=== PATIENT | female | born 1955 | race Caucasian/White ===

== ENCOUNTER → 2016-11-22 | Outpatient (CLI) | payer BC ==
[~2016-11-22] MED LIST: ISOVUE-370 76% 100ML VIAL (Q9967) As Ordered ONE
--- NOTE | 2016-11-22 15:57 | REP ---
CT CHEST WITH CONTRAST: 11/22/2016. Comparison: Chest x-ray 07/15/2016, 08/11/2014. Clinical history: Recent chest x-ray with question nodular mass right lung base. Technique: Bolus of 75 ml of Isovue 370, scanning through the chest with coronal and sagittal reconstructions. MIP thick slab reformats and lung window settings are reviewed. The lung cruz are well inflated. Epicardial fat pads are prominent on both sides of the heart, right more so than left. Adjacent to the mediastinal pleura of the medial segment of the right middle lobe, there is curvilinear atelectatic change, chronic. This is likely compressive atelectasis due to the epicardial fat pad. The left epicardial fat pad does not have adjacent atelectasis, but may be a small scar inferior lingular segment left upper lobe at the anterior left lung base. There is no effusion, pleural thickening, pleural based plaque or calcification. No parenchymal mass. No pulmonary nodule. No acute infiltrate with air bronchograms. Heart is not enlarged. Left atrium is borderline. There is no pericardial thickening or effusion. There is a small hiatal hernia. The aorta has atherosclerotic calcification without aneurysm or dissection. No pathologic mediastinal or hilar adenopathy. Upper abdomen shows some presumed fatty infiltration of liver and spleen without a mass. Spleen is not enlarged. No adrenal or pancreatic abnormality. The visualized portions of the poles of kidneys intact. The bony thorax shows vertebral bodies, posterior elements, sternum, manubrium, clavicles and shoulders grossly intact. Impression: 1. Epicardial fat pads on both sides of the heart with some curvilinear chronic atelectatic or fibrotic changes along the mediastinal pleura of the medial segment right middle lobe. This may give a pseudomass appearance but there is no lung mass, pericardial thickening or effusion. 2. Epicardial fat pad on the left and the borderline heart size with left atrial enlargement. Trace small hiatal hernia. 3. The lungs are well inflated and clear. No acute finding. Signed by Darwin Coyle MD 11/23/2016 03:04 P
== END ==
LOC: M RAD 13:55
PROVIDERS: ATTEND Family Medicine
DX: R91.8 Other nonspecific abnormal finding of lung field (principal)
CPT/HCPCS: 71260; Q9967

== ENCOUNTER → 2017-09-05 | Outpatient (REF) | payer BC | LOC: M LAB REF 13:46 | DX: J11.1 Influenza due to unidentified influenza virus with other respiratory manifestations (principal) | CPT/HCPCS: 87633 ==

== ENCOUNTER → 2019-08-08 | Outpatient (CLI) | payer BC ==
[2019-08-08 12:59] LABS: HEMATOCRIT 42.6 % (36.0-47.0); HEMOGLOBIN 13.8 g/dl (12.0-15.5); MEAN CORPUSCULAR HEMOGLOBIN 30.1 pg (27.0-33.0); MEAN CORPUSCULAR HGB CONC 32.4 g/dl (32.0-36.5); MEAN CORPUSCULAR VOLUME 92.8 fl (80.0-96.0); PLATELET COUNT, AUTOMATED 251 10^3/uL (150-450); RED BLOOD COUNT 4.59 10^6/uL (4.00-5.40)
[2019-08-08 13:21] LABS: HEMOGLOBIN A1c 6.2 %
[2019-08-08 13:27] LABS: ALBUMIN 3.6 GM/DL (3.2-5.2); ALT/SGPT 34 U/L (12-78); BILIRUBIN,TOTAL 0.3 MG/DL (0.2-1.0); BLOOD UREA NITROGEN 14 MG/DL (7-18); CALCIUM LEVEL 8.8 MG/DL (8.8-10.2); CARBON DIOXIDE LEVEL 26 MEQ/L (21-32); CHLORIDE LEVEL 108 MEQ/L (98-107); CHOLESTEROL LEVEL 325 MG/DL (<200); CHOLESTEROL RISK RATIO 7.926 (<5); CREATININE FOR GFR 0.84 MG/DL (0.55-1.30); GLOMERULAR FILTRATION RATE > 60.0 (>45); GLUCOSE, FASTING 88 MG/DL (70-100); HDL CHOLESTEROL 41 MG/DL (>40); LDL CHOLESTEROL 233 MG/DL (<100); NON-HDL-C 284 MG/DL; POTASSIUM SERUM 4.4 MEQ/L (3.5-5.1); SODIUM LEVEL 142 MEQ/L (136-145); TOTAL PROTEIN 6.7 GM/DL (6.4-8.2); TRIGLYCERIDES LEVEL 254 MG/DL (<150)
[2019-08-08 13:28] LABS: TOTAL 25(OH) VITAMIN D 39.7 NG/ML (30.0-100.0)
== END ==
LOC: M WUC 09:07
PROVIDERS: ATTEND Family Medicine
DX: I10 Essential (primary) hypertension (principal); R53.83 Other fatigue

== ENCOUNTER 2020-07-13 15:04 | Emergency (ER) | payer OTHER, SELFPAY ==
[~2020-07-13] VITALS: Ht 160 cm; Wt 70.9 kg
[2020-07-13] MEDS ORDERED: oxyCODONE 5MG TAB PO PRN (15:15)
[2020-07-13] MEDS ORDERED: fentaNYL 100 MCG/2 ML INJECTION (J3010) IV PRN (15:15)
[2020-07-13] MEDS ORDERED: ONDANSETRON 4MG/2ML VIAL IV PRN (15:15)
[2020-07-13] MEDS ORDERED: LR 1,000 ML IV SCH (15:15)
[2020-07-13] MEDS ORDERED: HYDROMORPHONE HCL 0.5 MG/ 0.5 ML SYRINGE (J1170 PER 1) IV PRN (15:15)
[2020-07-13] MEDS ORDERED: ZOLP10TA2 PO (15:16)
[2020-07-13] MEDS ORDERED: CYCL-707 PO (15:16)
[2020-07-13] MEDS ORDERED: ATEN25TA PO (15:16)
[2020-07-13] MEDS ORDERED: ESTR10TA VG (15:16)
[2020-07-13 15:56] LABS: BASO % 0.3 % (0.0-1.0); EOS # 0.1 10^3/uL (0.0-0.5); EOS % 1.3 % (0.0-3.0); HEMATOCRIT 43.7 % (36.0-47.0); HEMOGLOBIN 14.7 g/dl (12.0-15.5); LYMPH # 2.2 10^3/uL (1.5-5.0); MEAN CORPUSCULAR HEMOGLOBIN 30.8 pg (27.0-33.0); MEAN CORPUSCULAR HGB CONC 33.6 g/dl (32.0-36.5); MEAN CORPUSCULAR VOLUME 91.6 fl (80.0-96.0); MONO # 0.4 10^3/uL (0.0-0.8); MONO % 6.2 % (0.0-5.0); NEUTROPHILS # 4.1 10^3/uL (1.5-8.5); NEUTROPHILS % 59.8 % (36.0-66.0); PLATELET COUNT, AUTOMATED 246 10^3/uL (150-450); RED BLOOD COUNT 4.77 10^6/uL (4.00-5.40); WHITE BLOOD COUNT 6.8 10^3/uL (4.0-10.0)
[2020-07-13 15:57] LABS: APPEARANCE, URINE CLEAR (CLEAR); BACTERIA, URINE AUTO NEGATIVE (NEGATIVE); BILIRUBIN, URINE AUTO NEGATIVE (NEGATIVE); BLOOD, URINE BLOOD NEGATIVE (NEGATIVE); COLOR, URINE STRAW (YELLOW); GLUCOSE, URINE (UA) AUTO NEGATIVE (NEGATIVE); KETONE, URINE AUTO NEGATIVE (NEGATIVE); LEUKOCYTE ESTERASE, URINE AUTO NEGATIVE (NEGATIVE); NITRITE, URINE AUTO NEGATIVE (NEGATIVE); PROTEIN, URINE AUTO NEGATIVE (NEGATIVE); RBC, URINE AUTO 0 /HPF (0-3); SPECIFIC GRAVITY URINE AUTO 1.005 (1.002-1.035); SQUAMOUS EPITHELIAL CELL UR AU 0 /HPF (0-6); UROBILINOGEN, URINE AUTO 0.2 mg/dL (0.0-2.0); WBC, URINE AUTO 0 /HPF (0-3)
--- NOTE | 2020-07-13 16:01 | REP ---
INDICATION: hypertension. COMPARISON: July 15, 2016. May 18, 2020 prior chest x-ray is also reviewed. TECHNIQUE: Sitting AP portable radiograph. Single-view. FINDINGS: Monitoring electrodes are seen. The lungs are well inflated and clear. The pleural angles are sharp. Heart size is normal. The thoracic aorta is slightly tortuous. Pulmonary vasculature is not increased. IMPRESSION: No active cardiopulmonary disease. <Electronically signed by Richard Oscar > 07/13/20 [id number]
[2020-07-13] MEDS ORDERED: CALC600C3 PO (16:10)
[2020-07-13] MEDS ORDERED: SERT-141 PO (16:10)
[2020-07-13] MEDS ORDERED: XANA0.5T PO (16:10)
[2020-07-13] MEDS ORDERED: OMEP40CA97 PO (16:10)
[2020-07-13] MEDS ORDERED: VITALIQ27 MC (16:10)
--- NOTE | 2020-07-13 16:16 | REP ---
INDICATION: hypertensive/headache. COMPARISON: None. TECHNIQUE: Helical scanning is acquired. 5 mm axial images were reformatted. Coronal MPR images were generated. FINDINGS: Bone window settings demonstrate an intact bony calvarium. There is no evidence of skull fracture or incidental bony calvarial lesion. The visualized paranasal sinuses appear clear. No intraorbital abnormality is seen. On soft tissue window setting images; the lateral, third, and fourth ventricles are normal in size and position. Sheets-white differentiation pattern is normal above and below the tentorium. There are is no evidence of intracranial hemorrhage. No mass, edema, infarction, or midline shift is seen. No extra-axial fluid collection is appreciated. There is mild vascular calcification in the distal internal carotid arteries bilaterally. Mild generalized volume loss is visible on soft tissue window settings. IMPRESSION: Mild generalized volume loss and vascular calcification. No acute intracranial abnormality.. <Electronically signed by Richard Oscar > 07/13/20 [id number]
[2020-07-13 16:38] LABS: ALBUMIN 4.1 GM/DL (3.2-5.2); ALT/SGPT 50 U/L (12-78); BILIRUBIN,DIRECT < 0.1 MG/DL (0.0-0.2); BILIRUBIN,TOTAL 0.4 MG/DL (0.2-1.0); BLOOD UREA NITROGEN 11 MG/DL (7-18); CALCIUM LEVEL 9.2 MG/DL (8.8-10.2); CARBON DIOXIDE LEVEL 28 MEQ/L (21-32); CHLORIDE LEVEL 106 MEQ/L (98-107); CK-MB VALUE MASS 1.5 NG/ML (<3.6); CPK CREATINE PHOSPHOKINASE 138 U/L (26-192); CREATININE FOR GFR 0.78 MG/DL (0.55-1.30); GLOMERULAR FILTRATION RATE > 60.0 (>45); GLUCOSE, FASTING 85 MG/DL (70-100); MB/CK RELATIVE INDEX 1.09 (< OR =4); POTASSIUM SERUM 4.4 MEQ/L (3.5-5.1); SODIUM LEVEL 137 MEQ/L (136-145); TOTAL PROTEIN 8.2 GM/DL (6.4-8.2); TROPONIN I < 0.02 NG/ML (< 0.10)
[2020-07-13] MEDS: LABETALOL 100MG/20ML VIAL IV PRN ×2 (16:43→17:25)
--- NOTE | 2020-07-13 17:12 | ECGEPIP ---
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
[2020-07-13] MEDS ORDERED: KETOROLAC 30 MG/ML 1ML VIAL IV ONE (17:30)
[2020-07-13] MEDS ORDERED: METOCLOPRAMIDE INJ 10MG/2ML VIAL (J2765 PER 1) IV ONE (17:30)
[2020-07-13] MEDS ORDERED: diphenhydrAMINE 50MG/ML VIAL (J1200) IV ONE (17:30)
[2020-07-13] MEDS ORDERED: ACETAMINOPHEN 500 MG TAB PO ONE (17:30)
[2020-07-13] MEDS ORDERED: FUROSEMIDE 40MG/4ML VIAL (J1940) IV ONE (18:30)
[2020-07-13] MEDS ORDERED: CARVedilol 12.5 MG TAB PO ONE (18:30)
[2020-07-13] MEDS ORDERED: lisinopriL 10 MG TAB PO ONE (18:30)
[2020-07-13 18:43] VITALS: BP 243/112
[2020-07-13 18:55] LABS: AMPHETAMINES LEVEL URINE NEGATIVE (NEGATIVE); BARBITURATES URINE POSITIVE (NEGATIVE); BENZODIAZEPINES URINE NEGATIVE (NEGATIVE); CANNABINOIDS URINE NEGATIVE (NEGATIVE); COCAINE METABOLITE URINE NEGATIVE (NEGATIVE); METHADONE URINE NEGATIVE (NEGATIVE); OPIATES URINE NEGATIVE (NEGATIVE); PHENCYCLIDINE URINE NEGATIVE (NEGATIVE)
[2020-07-13 20:00] VITALS: BP 141/87
[2020-07-13] MEDS ORDERED: CHLO125TA PO (20:02)
[2020-07-13] MEDS ORDERED: LISI10TA4 PO (20:02)
[2020-07-13] MEDS ORDERED: CORE12.5 PO (20:02)
== END 2020-07-13 20:15 | disposition home or self-care (01) ==
LOC: M ED 15:04
DX: I10 Essential (primary) hypertension (principal); F41.9 Anxiety disorder, unspecified; Z88.6 Allergy status to analgesic agent; Z88.4 Allergy status to anesthetic agent; Z79.899 Other long term (current) drug therapy
CPT/HCPCS: 36415; 70450; 71045; 80053; 80307; 81001; 82248; 82550; 82553; 85025; 93005; 96374; 96375; 99284; J1200; J1885; J1940; J2765

== ENCOUNTER 2020-07-23 17:09 | Emergency (ER) | payer OTHER ==
[~2020-07-23] VITALS: Ht 160 cm; Wt 69.4 kg
[~2020-07-23 17:09] MED LIST changes: +ATEN25TA PO; +CALC600C3 PO; +CHLO125TA PO; +CORE12.5 PO; +CYCL-707 PO; +ESTR10TA VG; -ISOVUE-370 76% 100ML VIAL (Q9967) As Ordered ONE; +LISI10TA4 PO; +OMEP40CA97 PO; +SERT-141 PO; +VITALIQ27 MC; +XANA0.5T PO; +ZOLP10TA2 PO
[2020-07-23] MEDS ORDERED: CVS5000S2 PO (17:18)
[2020-07-23] MEDS ORDERED: KETOROLAC 30 MG/ML 1ML VIAL IV ONE (18:00)
[2020-07-23 18:11] LABS: BASO % 0.3 % (0.0-1.0); EOS # 0.1 10^3/uL (0.0-0.5); EOS % 1.6 % (0.0-3.0); HEMATOCRIT 44.7 % (36.0-47.0); HEMOGLOBIN 14.6 g/dl (12.0-15.5); LYMPH # 2.2 10^3/uL (1.5-5.0); LYMPH % 35.5 % (24.0-44.0); MEAN CORPUSCULAR HEMOGLOBIN 29.6 pg (27.0-33.0); MEAN CORPUSCULAR HGB CONC 32.7 g/dl (32.0-36.5); MEAN CORPUSCULAR VOLUME 90.7 fl (80.0-96.0); MONO # 0.4 10^3/uL (0.0-0.8); NEUTROPHILS # 3.5 10^3/uL (1.5-8.5); NEUTROPHILS % 56.3 % (36.0-66.0); PLATELET COUNT, AUTOMATED 291 10^3/uL (150-450); RED BLOOD COUNT 4.93 10^6/uL (4.00-5.40); WHITE BLOOD COUNT 6.2 10^3/uL (4.0-10.0)
[2020-07-23 18:34] LABS: ALBUMIN 4.4 GM/DL (3.2-5.2); ALT/SGPT 46 U/L (12-78); BILIRUBIN,DIRECT < 0.1 MG/DL (0.0-0.2); BILIRUBIN,TOTAL 0.2 MG/DL (0.2-1.0); BLOOD UREA NITROGEN 15 MG/DL (7-18); CARBON DIOXIDE LEVEL 26 MEQ/L (21-32); CHLORIDE LEVEL 106 MEQ/L (98-107); CREATININE FOR GFR 0.78 MG/DL (0.55-1.30); GLOMERULAR FILTRATION RATE > 60.0 (>45); GLUCOSE, FASTING 128 MG/DL (70-100); LIPASE 206 U/L (73-393); POTASSIUM SERUM 3.8 MEQ/L (3.5-5.1); SODIUM LEVEL 137 MEQ/L (136-145)
--- NOTE | 2020-07-23 18:35 | REP ---
INDICATION: hit doorknob/ l flank pain. COMPARISON: Chest 07/13/2020. TECHNIQUE: Four views of left ribs are performed. A PA view of the chest is performed. FINDINGS: There is no evidence of left rib fracture or bone lesion. Lungs show no infiltrate. No pneumothorax is seen. There is no pleural effusion. Heart is normal in size and the mediastinal silhouette is unremarkable. IMPRESSION: Negative left rib series, there is no radiographically visible left rib fracture. <Electronically signed by David Sheets > 07/23/20 [id number]
--- NOTE | 2020-07-23 19:39 | REPVR ---
PROCEDURE INFORMATION: Exam: CT Abdomen And Pelvis Without Contrast Exam date and time: 07/23/2020 6:40 PM Age: 64 years old Clinical indication: Abdominal pain; Flank; Left; Additional info: Left flank pain TECHNIQUE: Imaging protocol: Computed tomography of the abdomen and pelvis without contrast. Radiation optimization: All CT scans at this facility use at least one of these dose optimization techniques: automated exposure control; mA and/or kV adjustment per patient size (includes targeted exams where dose is matched to clinical indication); or iterative reconstruction. COMPARISON: No relevant prior studies available. FINDINGS: Lungs: No suspicious mass or airspace process in the visualized lung bases. Mediastinal space: Small hiatal hernia measuring 2.5 cm is present. Liver: Noncontrast liver shows no obvious lesion. Gallbladder and bile ducts: Gallbladder is present and shows no evidence of gallstone. Pancreas: Noncontrast pancreas shows no obvious mass or adjacent fluid. Spleen: Noncontrast spleen shows no obvious focal deformity. Adrenal glands: Adrenal glands are normal in appearance. Kidneys and ureters: Kidneys demonstrate no stone or obstruction. Stomach and bowel: No evidence of small bowel obstruction. No evidence of acute diverticulitis. Appendix: Normal caliber appendix is identified, with no adjacent inflammation. Intraperitoneal space: No pneumoperitoneum. Vasculature: Atherosclerotic change present in the aorta, without aneurysm. Lymph nodes: No enlarged lymph nodes. Urinary bladder: Urinary bladder appears normal. Reproductive: Uterus is surgically absent. Bones/joints: Bony structures are normal except for lumbar spine degenerative disc changes. Soft tissues: No concerning focal abnormality of the extra-abdominal and pelvic soft tissues. Other findings: Limited evaluation without enteric or IV contrast. IMPRESSION: 1. No evidence of renal stone or obstructing uropathy no explanation for acute left flank pain. 2. Hepatomegaly and hepatic steatosis Electronically signed by: Abisai Saravia On 07/23/2020 19:39:07 PM
[2020-07-23] MEDS ORDERED: CYCL5TAB PO (19:58)
[2020-07-23 20:19] VITALS: BP 168/96
--- NOTE | 2020-07-26 19:40 | ED PDOC ---
Post-Departure Follow-Up julio colin faxed formal report of ct abd/p for fu Batool Bravo MD Jul 26, 2020 19:40
== END 2020-07-23 20:28 | disposition home or self-care (01) ==
LOC: M ED 17:09
DX: R10.9 Unspecified abdominal pain (principal); I10 Essential (primary) hypertension; K21.9 Gastro-esophageal reflux disease without esophagitis; Z88.6 Allergy status to analgesic agent; Z88.8 Allergy status to other drugs, medicaments and biological substances
CPT/HCPCS: 71101; 74176; 80048; 80076; 81001; 83690; 85025; 87086; 96374; 99284; J1885

== ENCOUNTER → 2020-08-09 | Outpatient (CLI) | payer OTHER ==
[~2020-08-09] MED LIST changes: +CVS5000S2 PO; +CYCL5TAB PO
[2020-08-09 14:04] LABS: CALCIUM LEVEL 9.3 MG/DL (8.8-10.2); CREATININE FOR GFR 1.07 MG/DL (0.55-1.30); MAGNESIUM LEVEL 2.4 MG/DL (1.8-2.4); POTASSIUM SERUM 4.3 MEQ/L (3.5-5.1)
[2020-08-09 14:11] LABS: CREATININE, URINE 25.4 MG/DL; MALB URINE SIEMENS < 5.0 MG/L; MAU/CREAT RATIO 19.6 MCG/MG (0.0-30.0)
== END ==
LOC: M LAB 12:24
PROVIDERS: ATTEND Internal Medicine Cardiovascular Disease
DX: R23.2 Flushing (principal); I10 Essential (primary) hypertension

== ENCOUNTER → 2020-08-11 | Outpatient (REF) | payer OTHER | LOC: M LAB REF 10:21 | PROVIDERS: ATTEND Internal Medicine Cardiovascular Disease | DX: I10 Essential (primary) hypertension (principal); R23.2 Flushing ==

== ENCOUNTER → 2020-08-12 | Outpatient (REF) | payer OTHER ==
[2020-08-12 11:30] LABS: TOTAL VOLUME, URINE 2350 ML
[2020-08-12 11:49] LABS: SODIUM 24 HOUR URINE 101 MEQ/24HR (40-220); SODIUM, URINE 43 MEQ/L
== END ==
LOC: M LAB REF 10:17
PROVIDERS: ATTEND Internal Medicine Cardiovascular Disease
DX: I10 Essential (primary) hypertension (principal); R23.2 Flushing

== ENCOUNTER → 2020-08-30 | Outpatient (CLI) | payer OTHER ==
[~2020-08-30] MED LIST changes: +LISI10TA22 PO; -LISI10TA4 PO
--- NOTE | 2020-08-30 09:02 | REP ---
INDICATION: ESSENTIAL HYPERTENSION COMPARISON: None TECHNIQUE: Real time felix scale ultrasound examination using curved array transducer followed by color Doppler evaluation of the renal vasculature. FINDINGS: The bilateral kidneys demonstrate normal reniform shape without hydronephrosis. Right kidney measures 10.5 x 4.6 x 4.3. 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 Color Doppler evaluation of the renal vasculature is essentially normal.. Peak aortic velocity: 50.2 centimeters/second RIGHT KIDNEY Renal arterial velocity: 116.9 centimeters/second Renal-aortic ratio: 2.3 Intrarenal resistive indices: 0.54-0.57 Intrarenal acceleration times: 0.019-0.02 LEFT KIDNEY Renal arterial velocity: 133 centimeters/second Renal-aortic ratio: 2.7 Intrarenal resistive indices: 0.56-0.68 Intrarenal acceleration times: 0.017-0.039 IMPRESSION: 1. 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 No hydronephrosis.. 2. Doppler interrogation without sonographic evidence for renal arterial stenosis. <Electronically signed by Alden Ryan > 08/30/20 0813
== END ==
LOC: M RAD 07:50
PROVIDERS: ATTEND Internal Medicine Cardiovascular Disease
DX: I10 Essential (primary) hypertension (principal); N28.1 Cyst of kidney, acquired

== ENCOUNTER → 2020-08-31 | Outpatient (REF) | payer OTHER ==
[2020-08-31 19:13] LABS: HEMOGLOBIN A1c 6.2 %
== END ==
LOC: M SFHCADAM 14:17
PROVIDERS: ATTEND Physician Assistant Medical
DX: R73.03 Prediabetes (principal)

== ENCOUNTER → 2020-08-31 | Outpatient (CLI) | payer OTHER ==
--- NOTE | 2020-09-01 10:07 | REP ---
INDICATION: LOW BACK PAIN COMPARISON: None. TECHNIQUE: AP, lateral, and swimmers views. FINDINGS: Alignment and kyphosis is maintained. Vertebral bodies intact. No acute fracture / compression injury or subluxation. Generalized age-related changes include osteopenia and mild endplate sclerosis with minimal marginal spurring at multiple levels. IMPRESSION: Age-related osteopenia and very mild age-related changes. No acute fracture/compression injury or subluxation. <Electronically signed by Alden Ryan > 09/01/20 [id number]
== END ==
LOC: M ADAMS 14:20
PROVIDERS: ATTEND Physician Assistant Medical
DX: M54.5 Low back pain (principal)

== ENCOUNTER 2020-10-06 13:00 | Outpatient (RCR) | payer BC, MEDICARE | END 2020-10-10 | LOC: M PT 13:00 | PROVIDERS: ATTEND Physician Assistant Medical | DX: M54.6 Pain in thoracic spine (principal) ==

== ENCOUNTER 2020-11-05 21:35 | Emergency (ER) | payer MEDICARE ==
[~2020-11-05] VITALS: Ht 160 cm; Wt 65.5 kg
[2020-11-06 00:47] LABS: HEMOGLOBIN 11.3 g/dl (12.0-15.5); MEAN CORPUSCULAR HEMOGLOBIN 30.8 pg (27.0-33.0); MEAN CORPUSCULAR HGB CONC 33.2 g/dl (32.0-36.5); MEAN CORPUSCULAR VOLUME 92.6 fl (80.0-96.0); PLATELET COUNT, AUTOMATED 203 10^3/uL (150-450); RED BLOOD COUNT 3.67 10^6/uL (4.00-5.40); WHITE BLOOD COUNT 6.2 10^3/uL (4.0-10.0)
[2020-11-06] MEDS ORDERED: KETOROLAC 30 MG/ML 1ML VIAL IV ONE (01:00)
[2020-11-06 01:16] LABS: ALT/SGPT 26 U/L (12-78); BILIRUBIN,DIRECT < 0.1 MG/DL (0.0-0.2); BILIRUBIN,TOTAL 0.3 MG/DL (0.2-1.0); BLOOD UREA NITROGEN 16 MG/DL (7-18); CARBON DIOXIDE LEVEL 24 MEQ/L (21-32); CHLORIDE LEVEL 107 MEQ/L (98-107); CK-MB VALUE MASS < 1.0 NG/ML (<3.6); CPK CREATINE PHOSPHOKINASE 75 U/L (26-192); CREATININE FOR GFR 0.85 MG/DL (0.55-1.30); GLOMERULAR FILTRATION RATE > 60.0 (>45); GLUCOSE, FASTING 85 MG/DL (70-100); MB/CK RELATIVE INDEX 1.33 (< OR =4); POTASSIUM SERUM 3.6 MEQ/L (3.5-5.1); SODIUM LEVEL 138 MEQ/L (136-145); TOTAL PROTEIN 7.2 GM/DL (6.4-8.2); TROPONIN I < 0.02 NG/ML (< 0.10)
[2020-11-06 01:25] LABS: LIPASE 122 U/L (73-393)
--- NOTE | 2020-11-06 01:35 | REPVR ---
PROCEDURE INFORMATION: Exam: CT Head Without Contrast Exam date and time: 11/06/2020 12:58 AM Age: 65 years old Clinical indication: Pain; Headache not specified; Additional info: Neck pain/headache with inconsistent exam TECHNIQUE: Imaging protocol: Computed tomography of the head without contrast. Radiation optimization: All CT scans at this facility use at least one of these dose optimization techniques: automated exposure control; mA and/or kV adjustment per patient size (includes targeted exams where dose is matched to clinical indication); or iterative reconstruction. COMPARISON: CT Head without contrast 2020-07-13 15:56 FINDINGS: Brain: Normal. No hemorrhage. Unremarkable white matter. No mass effect. Cerebral ventricles: No ventriculomegaly. Bones/joints: Unremarkable. No acute fracture. Paranasal sinuses: Visualized sinuses are unremarkable. No fluid levels. Mastoid air cells: Visualized mastoid air cells are well aerated. Soft tissues: Unremarkable. IMPRESSION: No acute intracranial abnormality. Electronically signed by: Akshat Guadalupe On 11/06/2020 01:34:49 AM
--- NOTE | 2020-11-06 01:36 | REPVR ---
PROCEDURE INFORMATION: Exam: CT Cervical Spine Without Contrast Exam date and time: 11/06/2020 12:58 AM Age: 65 years old Clinical indication: Neck pain; Additional info: Neck pain/headache with inconsistent exam TECHNIQUE: Imaging protocol: Computed tomography images of the cervical spine without contrast. Radiation optimization: All CT scans at this facility use at least one of these dose optimization techniques: automated exposure control; mA and/or kV adjustment per patient size (includes targeted exams where dose is matched to clinical indication); or iterative reconstruction. COMPARISON: No relevant prior studies available. FINDINGS: Bones/joints: Minimal C3-C4 degenerative anterolisthesis. No acute vertebral fracture/subluxation. Discs/Spinal canal/Neural foramina: Diffuse degenerative disc space loss with degenerative disc osteophyte complexes, facet arthropathy, and ligamentum flavum thickening causes up to moderate spinal and foraminal stenosis greatest at C4-C6. Lungs: Lung apices are normal. Soft tissues: Unremarkable. IMPRESSION: 1. No acute findings. 2. No acute vertebral fracture/subluxation. Electronically signed by: Akshat Guadalupe On 11/06/2020 01:35:50 AM
[2020-11-06 03:15] VITALS: BP 156/82
[2020-11-06] MEDS ORDERED: OXYC1TAB23 PO ×3 (03:23→03:40)
[2020-11-06] MEDS ORDERED: PERCOCET 5MG/325MG TAB PO ONE (03:25)
--- NOTE | 2020-11-06 08:25 | REP ---
INDICATION: left shoulder pain. COMPARISON: Comparison chest x-ray July 23, 2020. TECHNIQUE: Portable upright AP chest radiograph. FINDINGS: The lungs are well inflated and free of infiltrate. Pleural angles are sharp. Heart size is normal. Pulmonary vasculature is not increased. IMPRESSION: No active disease. <Electronically signed by Richard Oscar > 11/06/20 0897
--- NOTE | 2020-11-06 08:26 | REP ---
INDICATION: left shoulder pain. COMPARISON: Comparison radiographs July 23, 2020.. TECHNIQUE: Three views of the left shoulder are provided. FINDINGS: The left glenohumeral and acromioclavicular joints are normally aligned. No fracture or subluxation is seen. Periarticular soft tissues are unremarkable. No erosive changes seen. The visualized left hemithorax is unremarkable. IMPRESSION: Negative left shoulder radiographs. <Electronically signed by Richard Oscar > 11/06/20 [id number]
--- NOTE | 2020-11-07 07:32 | ECGEPIP ---
[facility] - ED Test Date: 2020-11-06 Pat Name: SHARONA HOUGH Department: Room: - Gender: Female Comedian: : 1955 Requested By: Derek Daniels Order Number: [id number] Reading MD: Shanice Nur Measurements Intervals [place] Rate: 60 P: 26 ID: [id number] QRS: 2 QRSD: 84 T: 1 QT: 458 QTc: 458 Interpretive Statements Normal sinus rhythm NSTTW abnormalities and decreased rate compared 07/13/20 Electronically Signed on 11-07-2020 7:32:37 EDT by Shanice Nur
== END 2020-11-06 03:59 | disposition home or self-care (01) ==
LOC: M ED 21:35
DX: M50.30 Other cervical disc degeneration, unspecified cervical region (principal); M25.512 Pain in left shoulder; R51.9 Headache, unspecified; I10 Essential (primary) hypertension; Z88.5 Allergy status to narcotic agent; Z88.8 Allergy status to other drugs, medicaments and biological substances; Z79.899 Other long term (current) drug therapy
CPT/HCPCS: 70450; 71045; 72125; 73030; 80048; 80076; 82550; 82553; 83690; 84484; 85027; 93005; 96374; 99284; J1885

== ENCOUNTER → 2020-11-10 | Outpatient (RCR) | payer MEDICARE ==
[~2020-11-10] MED LIST changes: +OXYC1TAB23 PO
== END ==
LOC: M PT 10-18 09:52
PROVIDERS: ATTEND Physician Assistant Medical
DX: M54.6 Pain in thoracic spine (principal)

== ENCOUNTER 2020-11-17 10:42 | Outpatient (RCR) | payer MEDICARE | END 2020-12-10 | LOC: M PT 10:42 | PROVIDERS: ATTEND Physician Assistant Medical | DX: M54.6 Pain in thoracic spine (principal) ==

== ENCOUNTER 2020-12-27 15:15 | Outpatient (RCR) | payer MEDICARE | END 2021-01-10 | LOC: M PT 15:15 | PROVIDERS: ATTEND Physician Assistant Medical | DX: M54.6 Pain in thoracic spine (principal) ==

== ENCOUNTER → 2021-01-03 | Outpatient (REF) | payer MEDICARE ==
[2021-01-03 13:14] LABS: ALBUMIN 4.1 GM/DL (3.2-5.2); ALT/SGPT 24 U/L (12-78); BILIRUBIN,TOTAL 0.3 MG/DL (0.2-1.0); BLOOD UREA NITROGEN 15 MG/DL (7-18); CALCIUM LEVEL 9.4 MG/DL (8.8-10.2); CARBON DIOXIDE LEVEL 29 MEQ/L (21-32); CHLORIDE LEVEL 106 MEQ/L (98-107); CHOLESTEROL LEVEL 351 MG/DL (<200); CHOLESTEROL RISK RATIO 7.468 (<5); CREATININE FOR GFR 0.81 MG/DL (0.55-1.30); GLOMERULAR FILTRATION RATE > 60.0 (>45); GLUCOSE, FASTING 106 MG/DL (70-100); HDL CHOLESTEROL 47 MG/DL (>40); LDL CHOLESTEROL 235 MG/DL (<100); NON-HDL-C 304 MG/DL; POTASSIUM SERUM 4.7 MEQ/L (3.5-5.1); SODIUM LEVEL 139 MEQ/L (136-145); TRIGLYCERIDES LEVEL 343 MG/DL (<150)
[2021-01-03 13:23] LABS: CREATININE, URINE 86.3 MG/DL; MALB URINE SIEMENS 6.4 MG/L; MAU/CREAT RATIO 7.4 MCG/MG (0.0-30.0)
[2021-01-03 13:32] LABS: TOTAL 25(OH) VITAMIN D 67.6 NG/ML (30.0-100.0)
[2021-01-03 13:46] LABS: HEMOGLOBIN A1c 5.2 %
== END ==
LOC: M SFHCADAM 09:29
PROVIDERS: ATTEND Physician Assistant Medical
DX: E78.1 Pure hyperglyceridemia (principal); R73.03 Prediabetes; E55.9 Vitamin D deficiency, unspecified

== ENCOUNTER → 2021-06-22 | Outpatient (REF) | payer MEDICARE ==
[~2021-06-22] MED LIST changes: +OMEP40CA4 PO; -OMEP40CA97 PO
[2021-06-22 13:24] LABS: ALBUMIN 3.9 GM/DL (3.2-5.2); ALT/SGPT 30 U/L (12-78); BILIRUBIN,TOTAL 0.2 MG/DL (0.2-1.0); BLOOD UREA NITROGEN 19 MG/DL (7-18); CALCIUM LEVEL 9.3 MG/DL (8.8-10.2); CARBON DIOXIDE LEVEL 29 MEQ/L (21-32); CHLORIDE LEVEL 107 MEQ/L (98-107); CHOLESTEROL LEVEL 230 MG/DL (<200); CHOLESTEROL RISK RATIO 6.216 (<5); CREATININE FOR GFR 0.95 MG/DL (0.55-1.30); GLOMERULAR FILTRATION RATE > 60.0 (>45); GLUCOSE, FASTING 106 MG/DL (70-100); HDL CHOLESTEROL 37 MG/DL (>40); NON-HDL-C 193 MG/DL; POTASSIUM SERUM 4.8 MEQ/L (3.5-5.1); SODIUM LEVEL 140 MEQ/L (136-145); TOTAL PROTEIN 7.2 GM/DL (6.4-8.2); TRIGLYCERIDES LEVEL 477 MG/DL (<150)
== END ==
LOC: M LABDRWAD 12:30
PROVIDERS: ATTEND Physician Assistant
DX: E78.01 Familial hypercholesterolemia (principal)

== ENCOUNTER → 2021-06-27 | Outpatient (REF) | payer MEDICARE ==
[2021-06-28 13:06] LABS: HEMOGLOBIN A1c 5.7 %
== END ==
LOC: M SFHCADAM 15:11
PROVIDERS: ATTEND Physician Assistant Medical
DX: E11.69 Type 2 diabetes mellitus with other specified complication (principal)

== ENCOUNTER → 2021-07-20 | Outpatient (REF) | payer MEDICARE | LOC: M SFHCADAM 09:47 | PROVIDERS: ATTEND Physician Assistant | DX: R05.9 Cough, unspecified (principal) ==

== ENCOUNTER → 2022-01-16 | Outpatient (REF) | payer MEDICARE ==
[2022-01-16 16:49] LABS: BILIRUBIN,TOTAL 0.3 MG/DL (0.2-1.0); CALCIUM LEVEL 9.5 MG/DL (8.8-10.2); CHOLESTEROL RISK RATIO 4.366 (<5); CREATININE FOR GFR 1.07 MG/DL (0.55-1.30); GLOMERULAR FILTRATION RATE 54.6 (>45); POTASSIUM SERUM 4.5 MEQ/L (3.5-5.1); THYROID STIMULATING HORMONE 1.3 uIU/ML (0.358-3.740); TOTAL 25(OH) VITAMIN D 74.5 NG/ML (30.0-100.0); TOTAL PROTEIN 7.2 GM/DL (6.4-8.2)
[2022-01-16 17:58] LABS: HEMOGLOBIN A1c 5.5 %
== END ==
LOC: M SFHCADAM 12:04
PROVIDERS: ATTEND Physician Assistant Medical
DX: R73.03 Prediabetes (principal); E78.1 Pure hyperglyceridemia; I10 Essential (primary) hypertension

== ENCOUNTER → 2022-01-16 | Outpatient (CLI) | payer MEDICARE ==
[2022-01-16 16:42] LABS: ALBUMIN 3.9 GM/DL (3.2-5.2); BILIRUBIN,TOTAL 0.3 MG/DL (0.2-1.0); CALCIUM LEVEL 8.8 MG/DL (8.8-10.2); CHOLESTEROL RISK RATIO 4.084 (<5); CREATININE FOR GFR 1.11 MG/DL (0.55-1.30); GLOMERULAR FILTRATION RATE 52.4 (>45); POTASSIUM SERUM 4.5 MEQ/L (3.5-5.1); TOTAL PROTEIN 6.9 GM/DL (6.4-8.2)
== END ==
LOC: M ADAMS 12:15
PROVIDERS: ATTEND Physician Assistant
DX: I10 Essential (primary) hypertension (principal); E78.01 Familial hypercholesterolemia

== ENCOUNTER → 2022-09-22 | Outpatient (REF) | payer MEDICARE ==
[2022-09-22 12:48] LABS: HEMOGLOBIN 12.8 g/dl (12.0-15.5); MEAN CORPUSCULAR HEMOGLOBIN 30.3 pg (27.0-33.0); MEAN CORPUSCULAR HGB CONC 32.8 g/dl (32.0-36.5); MEAN CORPUSCULAR VOLUME 92.4 fl (80.0-96.0); PLATELET COUNT, AUTOMATED 265 10^3/uL (150-450); RED BLOOD COUNT 4.22 10^6/uL (4.00-5.40); WHITE BLOOD COUNT 5.5 10^3/uL (4.0-10.0)
[2022-09-22 13:29] LABS: CREATININE FOR GFR 0.99 MG/DL (0.55-1.30); GLOMERULAR FILTRATION RATE 59.6 (>45)
[2022-09-22 13:30] LABS: ALBUMIN 4.2 G/DL (3.2-5.2); BILIRUBIN,TOTAL 0.5 MG/DL (0.3-1.2); CALCIUM LEVEL 9.7 MG/DL (8.3-10.6); CHOLESTEROL RISK RATIO 4.43 (<5); HDL CHOLESTEROL 54.3 MG/DL (>40); LDL CHOLESTEROL 165.3 MG/DL (<100); POTASSIUM SERUM 4.6 MMOL/L (3.5-5.1); TOTAL PROTEIN 7.1 G/DL (5.7-8.2)
[2022-09-22 13:31] LABS: FREE T4 1.19 NG/DL (0.89-1.76); THYROID STIMULATING HORMONE 1.673 uIU/ML (0.55-4.78); TOTAL 25(OH) VITAMIN D 68.4 NG/ML (20.0-100.0)
[2022-09-22 14:25] LABS: HEMOGLOBIN A1c 5.5 % (4.0-6.0)
== END ==
LOC: M SFHCADAM 10:16
PROVIDERS: ATTEND Family Medicine
DX: E78.01 Familial hypercholesterolemia (principal); R73.03 Prediabetes; K21.9 Gastro-esophageal reflux disease without esophagitis; F41.9 Anxiety disorder, unspecified; E55.9 Vitamin D deficiency, unspecified; Z79.899 Other long term (current) drug therapy

== ENCOUNTER → 2023-06-01 | Outpatient (REF) | payer MEDICARE ==
[2023-06-01 17:30] LABS: BASO % 0.6 % (0.0-1.0); EOS # 0.1 10^3/uL (0.0-0.5); EOS % 2.1 % (0.0-3.0); HEMATOCRIT 38.7 % (36.0-47.0); HEMOGLOBIN 12.8 g/dl (12.0-15.5); LYMPH # 1.6 10^3/uL (1.5-5.0); LYMPH % 30.4 % (24.0-44.0); MEAN CORPUSCULAR HGB CONC 33.1 g/dl (32.0-36.5); MEAN CORPUSCULAR VOLUME 93.7 fl (80.0-96.0); MONO # 0.4 10^3/uL (0.0-0.8); MONO % 6.6 % (2.0-8.0); NEUTROPHILS # 3.2 10^3/uL (1.5-8.5); NEUTROPHILS % 59.9 % (36.0-66.0); PLATELET COUNT, AUTOMATED 262 10^3/uL (150-450); RED BLOOD COUNT 4.13 10^6/uL (4.00-5.40); WHITE BLOOD COUNT 5.3 10^3/uL (4.0-10.0)
[2023-06-06 06:34] LABS: CALCIUM LEVEL 9.5 MG/DL (8.7-10.3); CREATININE FOR GFR 1.09 MG/DL (0.57-1.00); GLOMERULAR FILTRATION RATE 53.3 (>59); POTASSIUM SERUM 4.4 mmol/L (3.5-5.2)
[2023-06-06 06:35] LABS: ALBUMIN 4.9 G/DL (3.9-4.9); BILIRUBIN,TOTAL 0.3 MG/DL (0.0-1.2); CHOLESTEROL RISK RATIO 3.41 (<5); THYROID STIMULATING HORMONE 1.88 uIU/ML (0.450-4.500); TOTAL PROTEIN 7.1 G/DL (6.0-8.5)
== END ==
LOC: M SFHCADAM 13:31
PROVIDERS: ATTEND Physician Assistant Medical
DX: E78.1 Pure hyperglyceridemia (principal); R73.03 Prediabetes; E55.9 Vitamin D deficiency, unspecified; I10 Essential (primary) hypertension; Z79.899 Other long term (current) drug therapy

== ENCOUNTER → 2023-12-07 | Outpatient (REF) | payer MEDICARE ==
[2023-12-07 15:39] LABS: BASO % 0.5 % (0.0-1.0); EOS # 0.1 10^3/uL (0.0-0.5); EOS % 1.2 % (0.0-3.0); HEMATOCRIT 40.3 % (36.0-47.0); HEMOGLOBIN 13.3 g/dl (12.0-15.5); LYMPH # 1.8 10^3/uL (1.5-5.0); LYMPH % 30.4 % (24.0-44.0); MEAN CORPUSCULAR VOLUME 93.9 fl (80.0-96.0); MONO # 0.5 10^3/uL (0.0-0.8); MONO % 8.2 % (2.0-8.0); NEUTROPHILS # 3.4 10^3/uL (1.5-8.5); NEUTROPHILS % 59.2 % (36.0-66.0); PLATELET COUNT, AUTOMATED 276 10^3/uL (150-450); RED BLOOD COUNT 4.29 10^6/uL (4.00-5.40); WHITE BLOOD COUNT 5.8 10^3/uL (4.0-10.0)
[2023-12-07 16:07] LABS: HEMOGLOBIN A1c 5.4 % (4.0-6.0)
[2023-12-07 16:10] LABS: ALBUMIN 4.3 G/DL (3.2-5.2); ALKALINE PHOSPHATASE 41 U/L (46-116); ALT/SGPT 39 U/L (7.0-40); AST/SGOT 24 U/L (<34); BILIRUBIN,TOTAL 0.5 MG/DL (0.3-1.2); BLOOD UREA NITROGEN 21 MG/DL (9-23); CALCIUM LEVEL 9.9 MG/DL (8.3-10.6); CARBON DIOXIDE LEVEL 26 MMOL/L (20-31); CHLORIDE LEVEL 103 MMOL/L (98-107); CHOLESTEROL LEVEL 192 MG/DL (<200); CHOLESTEROL RISK RATIO 3.61 (<5); GLOMERULAR FILTRATION RATE > 60.0 (>45); GLUCOSE, FASTING 101 MG/DL (74-106); HDL CHOLESTEROL 53.1 MG/DL (>40); LDL CHOLESTEROL 111.1 MG/DL (<100); NON-HDL-C 138.9 MG/DL; POTASSIUM SERUM 4.2 MMOL/L (3.5-5.1); SODIUM LEVEL 139 MMOL/L (136-145); TOTAL PROTEIN 7.1 G/DL (5.7-8.2); TRIGLYCERIDES LEVEL 139 MG/DL (<150)
[2023-12-07 16:13] LABS: TOTAL 25(OH) VITAMIN D 100.7 NG/ML (20.0-100.0)
[2023-12-07 18:34] LABS: MAU/CREAT RATIO 3.8 MCG/MG (0.0-30.0)
== END ==
LOC: M SFHCADAM 11:11
PROVIDERS: ATTEND Physician Assistant Medical
DX: I10 Essential (primary) hypertension (principal); R73.03 Prediabetes; E78.01 Familial hypercholesterolemia; K21.9 Gastro-esophageal reflux disease without esophagitis; E55.9 Vitamin D deficiency, unspecified

== ENCOUNTER → 2023-12-20 | Outpatient (REF) | payer MEDICARE | LOC: M SFHCPLAZ 11:21 | PROVIDERS: ATTEND Physician Assistant Medical | DX: J40 Bronchitis, not specified as acute or chronic (principal) ==

== ENCOUNTER → 2023-12-27 | Outpatient (CLI) | payer MEDICARE | LOC: M ADAMS 13:08 | PROVIDERS: ATTEND Physician Assistant Medical | DX: R05.1 Acute cough (principal); J06.9 Acute upper respiratory infection, unspecified ==

== ENCOUNTER → 2024-06-06 | Outpatient (REF) | payer MEDICARE ==
[2024-06-06 13:41] LABS: ALBUMIN 3.9 G/DL (3.2-5.2); ALKALINE PHOSPHATASE 42 U/L (35-104); ALT/SGPT 26 U/L (7.0-40); AST/SGOT 23 U/L (<34); BILIRUBIN,TOTAL 0.5 MG/DL (0.3-1.2); BLOOD UREA NITROGEN 22 MG/DL (9-23); CALCIUM LEVEL 9.8 MG/DL (8.3-10.6); CARBON DIOXIDE LEVEL 29 MMOL/L (20-31); CHLORIDE LEVEL 104 MMOL/L (98-107); CHOLESTEROL LEVEL 166 MG/DL (<200); CHOLESTEROL RISK RATIO 3.38 (<5); CREATININE FOR GFR 0.92 MG/DL (0.55-1.30); GLOMERULAR FILTRATION RATE > 60.0 (>45); GLUCOSE, FASTING 136 MG/DL (74-106); LDL CHOLESTEROL 86.2 MG/DL (<100); POTASSIUM SERUM 4.4 MMOL/L (3.5-5.1); SODIUM LEVEL 140 MMOL/L (136-145); TOTAL PROTEIN 6.8 G/DL (5.7-8.2); TRIGLYCERIDES LEVEL 154 MG/DL (<150)
[2024-06-06 13:42] LABS: TOTAL 25(OH) VITAMIN D 46.1 NG/ML (20.0-100.0)
[2024-06-06 14:04] LABS: HEMOGLOBIN A1c 5.6 % (4.0-6.0)
== END ==
LOC: M SFHCADAM 08:40
PROVIDERS: ATTEND Physician Assistant Medical
DX: I10 Essential (primary) hypertension (principal); R73.03 Prediabetes; E78.1 Pure hyperglyceridemia; E55.9 Vitamin D deficiency, unspecified

== ENCOUNTER → 2024-07-08 | Outpatient (CLI) | payer MEDICARE ==
[~2024-07-08] MED LIST changes: -CYCL5TAB PO; +CYCL5TAB4 PO
== END ==
LOC: M RAD 07:39
PROVIDERS: ATTEND Physician Assistant Medical
DX: K76.0 Fatty (change of) liver, not elsewhere classified (principal)

== ENCOUNTER → 2024-12-15 | Outpatient (REF) | payer MEDICARE ==
[2024-12-15 13:19] LABS: BASO % 0.6 % (0.0-1.0); EOS # 0.1 10^3/uL (0.0-0.5); EOS % 2.1 % (0.0-3.0); HEMATOCRIT 39.5 % (36.0-47.0); HEMOGLOBIN 12.9 g/dl (12.0-15.5); LYMPH # 1.5 10^3/uL (1.5-5.0); LYMPH % 28.5 % (24.0-44.0); MEAN CORPUSCULAR HEMOGLOBIN 30.8 pg (27.0-33.0); MEAN CORPUSCULAR HGB CONC 32.7 g/dl (32.0-36.5); MEAN CORPUSCULAR VOLUME 94.3 fl (80.0-96.0); MONO # 0.4 10^3/uL (0.0-0.8); MONO % 8.2 % (2.0-8.0); NEUTROPHILS # 3.2 10^3/uL (1.5-8.5); NEUTROPHILS % 60.2 % (36.0-66.0); PLATELET COUNT, AUTOMATED 273 10^3/uL (150-450); RED BLOOD COUNT 4.19 10^6/uL (4.00-5.40); WHITE BLOOD COUNT 5.3 10^3/uL (4.0-10.0)
[2024-12-15 13:28] LABS: ALBUMIN 4.2 G/DL (3.2-5.2); BILIRUBIN,TOTAL 0.4 MG/DL (0.3-1.2); CALCIUM LEVEL 9.8 MG/DL (8.3-10.6); CHOLESTEROL RISK RATIO 4.38 (<5); CREATININE FOR GFR 1.01 MG/DL (0.55-1.30); GLOMERULAR FILTRATION RATE 60.3 (>45); HDL CHOLESTEROL 54.1 MG/DL (>40); LDL CHOLESTEROL 154.9 MG/DL (<100); NON-HDL-C 182.9 MG/DL; POTASSIUM SERUM 4.7 MMOL/L (3.5-5.1); TOTAL PROTEIN 7.5 G/DL (5.7-8.2)
[2024-12-15 13:30] LABS: THYROID STIMULATING HORMONE 1.495 uIU/ML (0.55-4.78); THYROID STIMULATING HORMONE 1.588 uIU/ML (0.55-4.78); TOTAL 25(OH) VITAMIN D 49.6 NG/ML (20.0-100.0)
[2024-12-15 13:31] LABS: FREE T4 1.13 NG/DL (0.89-1.76)
[2024-12-15 13:58] LABS: CREATININE, URINE 91.2 MG/DL
[2024-12-15 13:59] LABS: MALB URINE SIEMENS < 3.0 MG/L
[2024-12-15 14:41] LABS: HEMOGLOBIN A1c 5.4 % (4.0-6.0)
== END ==
LOC: M SFHCADAM 10:07
PROVIDERS: ATTEND Physician Assistant Medical
DX: R73.03 Prediabetes (principal); E78.01 Familial hypercholesterolemia; E78.1 Pure hyperglyceridemia; K21.9 Gastro-esophageal reflux disease without esophagitis; K76.0 Fatty (change of) liver, not elsewhere classified; E55.9 Vitamin D deficiency, unspecified

== ENCOUNTER → 2025-06-19 | Outpatient (REF) | payer MEDICARE ==
[~2025-06-19] MED LIST changes: +ZOLP10TA11 PO; -ZOLP10TA2 PO
[2025-06-19 17:26] LABS: ALT/SGPT 29.0 U/L (7.0-40); AST/SGOT 30.0 U/L (<34); CALCIUM LEVEL 9.0 MG/DL (8.3-10.6); CARBON DIOXIDE LEVEL 27.0 MMOL/L (20-31); CHLORIDE LEVEL 103.0 MMOL/L (98-107); CHOLESTEROL LEVEL 130.0 MG/DL (<200); CHOLESTEROL RISK RATIO 2.41 (<5); CREATININE FOR GFR 1.46 MG/DL (0.55-1.30); GLOMERULAR FILTRATION RATE 38.7 (>45); LDL CHOLESTEROL 52.4 MG/DL (<100); NON-HDL-C 76.2 MG/DL; POTASSIUM SERUM 4.4 MMOL/L (3.5-5.1); SODIUM LEVEL 140.0 MMOL/L (136-145); TRIGLYCERIDES LEVEL 119.0 MG/DL (<150)
[2025-06-19 17:28] LABS: TOTAL 25(OH) VITAMIN D 62.6 NG/ML (20.0-100.0)
[2025-06-19 18:09] LABS: ESTIMATED AVERAGE GLUCOSE 131.0 MG/DL (60-110)
== END ==
LOC: M SFHCADAM 12:20
PROVIDERS: ATTEND Physician Assistant
DX: I10 Essential (primary) hypertension (principal); K76.0 Fatty (change of) liver, not elsewhere classified; R73.03 Prediabetes; E78.00 Pure hypercholesterolemia, unspecified; E55.9 Vitamin D deficiency, unspecified

== ENCOUNTER → 2025-06-22 | Outpatient (REF) | payer MEDICARE ==
[2025-06-22 13:38] LABS: APPEARANCE, URINE CLEAR (CLEAR); BACTERIA, URINE AUTO NEGATIVE (NEGATIVE); BILIRUBIN, URINE AUTO NEGATIVE (NEGATIVE); BLOOD, URINE BLOOD NEGATIVE (NEGATIVE); GLUCOSE, URINE (UA) AUTO NEGATIVE (NEGATIVE); KETONE, URINE AUTO NEGATIVE (NEGATIVE); LEUKOCYTE ESTERASE, URINE AUTO TRACE (NEGATIVE); NITRITE, URINE AUTO NEGATIVE (NEGATIVE); PROTEIN, URINE AUTO NEGATIVE (NEGATIVE); RBC, URINE AUTO 0 /HPF (0-3); SPECIFIC GRAVITY URINE AUTO 1.013 (1.002-1.035); SQUAMOUS EPITHELIAL CELL UR AU 0 /HPF (0-6); UROBILINOGEN, URINE AUTO 0.2 mg/dL (0.0-2.0); WBC, URINE AUTO 2 /HPF (0-3)
[2025-06-22 14:17] LABS: CALCIUM LEVEL 9.4 MG/DL (8.3-10.6); CARBON DIOXIDE LEVEL 30.0 MMOL/L (20-31); CHLORIDE LEVEL 102.0 MMOL/L (98-107); CREATININE FOR GFR 1.26 MG/DL (0.55-1.30); GLOMERULAR FILTRATION RATE 46.2 (>45); POTASSIUM SERUM 4.5 MMOL/L (3.5-5.1); SODIUM LEVEL 139.0 MMOL/L (136-145)
== END ==
LOC: M SFHCADAM 10:39
PROVIDERS: ATTEND Physician Assistant Medical
DX: N17.9 Acute kidney failure, unspecified (principal); R73.03 Prediabetes

== ENCOUNTER → 2025-07-21 | Outpatient (CLI) | payer MEDICARE | LOC: M WHC 07:24 | PROVIDERS: ATTEND Physician Assistant Medical | DX: K76.0 Fatty (change of) liver, not elsewhere classified (principal) ==

== ENCOUNTER → 2025-07-27 | Outpatient (CLI) | payer MEDICARE | LOC: M WHC 08:37 | PROVIDERS: ATTEND Physician Assistant Medical | DX: Z13.820 Encounter for screening for osteoporosis (principal); M81.0 Age-related osteoporosis without current pathological fracture ==